=== PATIENT | female | born 1965 | race African-American/Black ===

== ENCOUNTER 2017-05-15 21:25 | Emergency (ER) | payer OTHER ==
--- NOTE | 2017-05-15 21:36 | PDOC ---
Rapid Medical Evaluation Time Seen by Provider: 05/15/17 21:31 Medical Evaluation: 05/15/17 21:32 I have performed a brief in-person evaluation of this patient. The patient presents with a chief complaint of: Coughing x1 month. Now c/o left sided "lung pain". Fingers/feet amputated due to "missed dx pneumonia, went into sepsis" in 2008 Pertinent physical exam findings:L/S ctab I have ordered the following: CXR The patient will proceed to the ED for further evaluation.
[2017-05-15 21:41] VITALS: BMI 31.4
--- NOTE | 2017-05-15 22:22 | PDOC ---
History of Present Illness - General Chief Complaint: Cold Symptoms Stated Complaint: FATIGUE Time Seen by Provider: 05/15/17 21:31 - History of Present Illness Initial Comments: 05/15/17 22:19 Patient is a 52 y.o. 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 Patient endorse a pleuritic chest pain but denies any dyspnea, palpitations. Patient did not receive the influenza vaccine. Patient further denies any subjective fevers/chills, nausea/vomiting, diarrhea/ constipation. NKDA Surgical: B/L LE and UE amputations, C/S PMD: None, will refer to IM resident clinic Past History - Past Medical History Allergies/Adverse Reactions: Allergies Allergy/AdvReac Type Severity Reaction Status Date / Time No Known Allergies Allergy Verified 05/15/17 23:03 Home Medications: Ambulatory Orders NK [No Known Home Medication] 05/15/17 COPD: No HTN: Yes - Suicide/Smoking/Psychosocial Hx Smoking History: Current every day smoker Have you smoked in the past 12 months: Yes Number of Cigarettes Smoked Daily: 5 Information on smoking cessation initiated: No Hx Alcohol Use: No Drug/Substance Use Hx: No Substance Use Type: None *Physical Exam - Vital Signs Last Vital Signs Temp Pulse Resp BP Pulse Ox 98.8 F 89 18 158/106 100 05/15/17 21:33 05/15/17 21:33 05/15/17 21:33 05/15/17 21:33 05/15/17 21:33 ED Treatment Course - LABORATORY CBC & Chemistry Diagram: 05/15/17 23:26 05/15/17 23:26 Medical Decision Making - Medical Decision Making 05/15/17 22:24 52 y.o. female presents with productive cough, pleuritic chest pain and flank pain. Patient initially hypertensive - will repeat BP. Initial clinical suspicion for pneumonia vs. bronchitis vs. influenza. Will also obtain UA/UC to r/o UTI/pyelonephritis. Pain control with Toradol. 05/15/17 22:41 Repeat BP SPB 150's. UA positive for 3 (+) blood. Will send for Spiral CT to r /o nephrolithiasis. CXR, labs pending. Patient resting comfortably, signed out to Dr. Villa (Resident). *DC/Admit/Observation/Transfer Diagnosis at time of Disposition: Pain - Referrals Referrals: Morteza Lira MD [Staff Physician] - - Patient Instructions - Post Discharge Activity
--- NOTE | 2017-05-15 22:28 | PDOC ---
Attending Attestation - Resident Resident Name: Edmund,Deirdre - ED Attending Attestation I have performed the following: I have examined & evaluated the patient, The case was reviewed & discussed with the resident, I agree w/resident's findings & plan, Exceptions are as noted - HPI HPI: 05/15/17 22:27 52y F hx of htn, hx of multiple amutations s/p episode of sepsis, presents with complaint of 1 month of cough productive of yellowish/whitish sputum, L sided back pain x several weeks with 4 days of L sided lower back pain. The upper back pain is worse wit hcoughs and movement, no associated hemoptysis, incerased leg swelling, HERNANDEZ, chest pain and is described as an aching and burning. pt nots that her L sided lower back pain is intermittent, worse with movements and resolves with rest. No associated abd pain, n/v, dysuria, hematuria, diarrhea. on exam the pt has abmupated digits on all fingers b/l LE amputations abd soft nontender +reproducible tenderness to the soft tissue under L scapula and in the L lumbar paraspinal regions suspect msk in nauter cxr to r/o pna UA shows +blood - will r/o kidney stone will reasesss - Physicial Exam PE: 05/16/17 03:38 see yamile - Medical Decision Making 05/16/17 03:38 pt feeling better w/ tramadol ct ap neg cxr neg for pna will dc with supportive care suspect her pain is msk in nature will have her fu with her PMD I discussed the physical exam findings, ancillary test results and final diagnoses with the patient. I answered all of the patient's questions. The patient was satisfied with the care received and felt comfortable with the discharge plan and treatment plan. The patient will call their primary care physician within 24 hours to arrange follow-up and will return to the Emergency Department with any new, persistent or worsening symptoms. Heart Score/ECG Review - ECG Impressions Comment:: 05/16/17 00:21 Twelve-lead EKG was performed and reviewed by me. There is normal sinus rhythm with a normal rate. Rate of 70 Left axis deviation T Wave inversion in lead 3, and a lateral leads
[2017-05-15] MEDS ORDERED: SODIUM CHLORIDE 0.9% 1000 ML INFUS.BAG IV ONE (22:38)
[2017-05-15] MEDS ORDERED: KETOROLAC TROMETHAMINE 15 MG/ML VIAL IVPUSH ONE (23:24)
[2017-05-15] MEDS ORDERED: KETOROLAC TROMETHAMINE 15 MG/ML VIAL ONE (23:28)
[2017-05-15 23:31] LABS: BASO % 1.3 % (0-2.0); EOS % 2.1 % (0-4.5); HEMATOCRIT 39.8 % (32.4-45.2); HEMOGLOBIN 13.1 GM/dL (10.7-15.3); LYMPH % 33.4 % (8-40); MCH 27.5 pg (25.7-33.7); MEAN CELL VOLUME 83.5 fl (80-96); MEAN PLT VOLUME 6.9 fl (7.5-11.1); MONO % 8.9 % (3.8-10.2); NEUT % 54.3 % (42.8-82.8); PLATELET COUNT 253 K/MM3 (134-434); RBC 4.76 M/mm3 (3.60-5.2); RDW 14.4 % (11.6-15.6)
[2017-05-15 23:33] LABS: URINE APPEARANCE CLEAR; URINE BILIRUBIN NEGATIVE (NEGATIVE); URINE BLOOD 2+ (NEGATIVE); URINE COLOR LTYELLOW; URINE GLUCOSE (UA) NEGATIVE (NEGATIVE); URINE KETONE NEGATIVE (NEGATIVE); URINE LEUK ESTERASE NEGATIVE (NEGATIVE); URINE NITRITE NEGATIVE (NEGATIVE); URINE PROTEIN NEGATIVE (NEGATIVE); URINE UROBILINOGEN NEGATIVE mg/dL (0.2-1.0)
[2017-05-15 23:50] LABS: EPI CELLS RARE /HPF (FEW); URINE MUCUS RARE
[2017-05-16 00:03] LABS: ALBUMIN 3.5 g/dl (3.4-5.0); ANION GAP 8 (8-16); BLOOD UREA NITROGEN 13 mg/dL (7-18); CALCIUM 8.2 mg/dL (8.5-10.1); CHLORIDE 107 mmol/L (98-107); CO2 27 mmol/L (21-32); CREATININE 0.7 mg/dL (0.55-1.02); GLUCOSE,RANDOM 132 mg/dL (74-106); POTASSIUM 3.7 mmol/L (3.5-5.1); SGOT/AST 15 U/L (15-37); SGPT/ALT 23 U/L (12-78); SODIUM 142 mmol/L (136-145)
[2017-05-16 00:04] LABS: ALK PHOS 87 U/L (45-117); BILIRUBIN,TOTAL 0.2 mg/dL (0.2-1.0); TOT PROT 6.8 g/dl (6.4-8.2)
--- NOTE | 2017-05-16 00:10 | PDOC ---
*Physical Exam - Vital Signs Last Vital Signs Temp Pulse Resp BP Pulse Ox 98.8 F 89 18 158/106 100 05/15/17 21:33 05/15/17 21:33 05/15/17 21:33 05/15/17 21:33 05/15/17 21:33 <AlbanJerilyn - Last Filed: 05/16/17 03:07> - Vital Signs Last Vital Signs Temp Pulse Resp BP Pulse Ox 98.8 F 89 18 158/106 100 05/15/17 21:33 05/15/17 21:33 05/15/17 21:33 05/15/17 21:33 05/15/17 21:33 - Physical Exam Comments: 05/16/17 00:09 The patient was signed out to me by Dr. Shaffer, divya team. The patient is a 52F presenting with L flank pain, CP, and cough. UA indicates blood. Pending spiral CT and chest XR. <Heber Villa - Last Filed: 05/16/17 03:40> ED Treatment Course - LABORATORY CBC & Chemistry Diagram: 05/15/17 23:26 05/15/17 23:26 - ADDITIONAL ORDERS Additional order review: Laboratory Results 05/15/17 05/15/17 05/15/17 23:26 23:26 23:26 Sodium 142 Potassium 3.7 Chloride 107 Carbon Dioxide 27 Anion Gap 8 BUN 13 Creatinine 0.7 Creat Clearance w eGFR > 60 Random Glucose 132 H Calcium 8.2 L Total Bilirubin 0.2 AST 15 ALT 23 Alkaline Phosphatase 87 Creatine Kinase 241 H Creatine Kinase Index 0.9 CK-MB (CK-2) 2.266 Troponin I < 0.02 Total Protein 6.8 Albumin 3.5 Urine Color Ltyellow Urine Appearance Clear Urine pH 6.0 Ur Specific [place] 1.017 Urine Protein Negative Urine Glucose (UA) Negative Urine Ketones Negative Urine Blood 2+ H Urine Nitrite Negative Urine Bilirubin Negative Urine Urobilinogen Negative Ur Leukocyte Esterase Negative Urine WBC (Auto) 2 Urine RBC (Auto) 5 Ur Epithelial Cells Rare Urine Mucus Rare 05/15/17 23:26 Influenza Types A,B Antigen (NASIR) - Final Nasopharyngeal Swab - Final 05/15/17 23:26 RBC 4.76 MCV 83.5 MCHC 33.0 RDW 14.4 MPV 6.9 L Neutrophils % 54.3 Lymphocytes % 33.4 Monocytes % 8.9 Eosinophils % 2.1 Basophils % 1.3 - Medications Given in the ED: ED Medications Discontinued Medications Generic Name Dose Route Start Last Admin Trade Name Josee PRN Reason Stop Dose Admin Ketorolac Tromethamine 15 mg 05/15/17 23:24 05/15/17 23:33 Toradol Injection - IVPUSH 05/15/17 23:25 15 mg ONCE ONE Administration Sodium Chloride 1,000 ml 05/15/17 22:38 05/15/17 23:33 Normal Saline - IV 05/15/17 22:39 1,000 ml ONCE ONE Administration <Jerilyn Phoenix - Last Filed: 05/16/17 03:07> - LABORATORY CBC & Chemistry Diagram: 05/15/17 23:26 05/15/17 23:26 - ADDITIONAL ORDERS Additional order review: Laboratory Results 05/15/17 05/15/17 05/15/17 23:26 23:26 23:26 Sodium 142 Potassium 3.7 Chloride 107 Carbon Dioxide 27 Anion Gap 8 BUN 13 Creatinine 0.7 Creat Clearance w eGFR > 60 Random Glucose 132 H Calcium 8.2 L Total Bilirubin 0.2 AST 15 ALT 23 Alkaline Phosphatase 87 Creatine Kinase 241 H Troponin I < 0.02 Total Protein 6.8 Albumin 3.5 Urine Color Ltyellow Urine Appearance Clear Urine pH 6.0 Ur Specific [place] 1.017 Urine Protein Negative Urine Glucose (UA) Negative Urine Ketones Negative Urine Blood 2+ H Urine Nitrite Negative Urine Bilirubin Negative Urine Urobilinogen Negative Ur Leukocyte Esterase Negative 05/15/17 23:26 Influenza Types A,B Antigen (NASIR) - Final Nasopharyngeal Swab - Final 05/15/17 23:26 RBC 4.76 MCV 83.5 MCHC 33.0 RDW 14.4 MPV 6.9 L Neutrophils % 54.3 Lymphocytes % 33.4 Monocytes % 8.9 Eosinophils % 2.1 Basophils % 1.3 - Medications Given in the ED: ED Medications Discontinued Medications Generic Name Dose Route Start Last Admin Trade Name Josee PRN Reason Stop Dose Admin Ketorolac Tromethamine 15 mg 05/15/17 23:24 05/15/17 23:33 Toradol Injection - IVPUSH 05/15/17 23:25 15 mg ONCE ONE Administration Sodium Chloride 1,000 ml 05/15/17 22:38 05/15/17 23:33 Normal Saline - IV 05/15/17 22:39 1,000 ml ONCE ONE Administration <Heber Villa Last Filed: 05/16/17 03:40> Medical Decision Making - Medical Decision Making 05/16/17 03:07 EXAM: CT abdomen pelvis without contrast HISTORY: Renal stone COMPARISON: None. FINDINGS: Abdomen Liver: There is a 1.6 cm right hepatic cyst Spleen: Normal Pancreas: Normal Gallbladder: Normal Stomach: Normal Small bowel: Normal Large bowel: Normal Appendix: Normal Adrenals:Normal Kidneys: Normal Vascular: Normal Lymphatic: Normal Peritoneal: No free peritoneal air or fluid Pelvis: Uterus: normal There is a 5.0 x 4.5 cm right adnexal cystic mass Rectum: Normal Bladder: Normal The inferior thorax: Normal General: Skeletal: Normal Abdominal wall: Normal Impression: Right adnexal cyst is likely ovarian in origin. Correlation with history and pelvic exam is recommended. Pelvic ultrasound would be helpful if there is concern for torsion Read by: Rick Decker MD <Jerilyn Phoenix - Last Filed: 05/16/17 03:07> - Medical Decision Making 05/16/17 00:09 The patient was signed out to me by Dr. Shaffer, divya team. The patient is a 52F presenting with L flank pain, CP, and cough. UA indicates blood. Pending spiral CT and chest XR. 05/16/17 03:18 CT read as above. Pending CXR. 05/16/17 03:39 CXR negative on preliminary read. Will treat h/a in ER and d/c home with toradol and PCP f/u. <Heber Villa - Last Filed: 05/16/17 03:40> *DC/Admit/Observation/Transfer - Attestations Scribe Attestion: 05/16/17 03:08 Documentation prepared by Jerilyn Phoenix, acting as medical planner for Bin Smith MD. <Jerilyn Phoenix - Last Filed: 05/16/17 03:07> - Discharge Dispostion Admit: No <Heber Villa Last Filed: 05/16/17 03:40> Diagnosis at time of Disposition: Pain - Discharge Dispostion Disposition: HOME Condition at time of disposition: Stable - Prescriptions Prescriptions: Tramadol HCl 50 mg PO TID PRN #10 tablet MDD 4 PRN Reason: Pain - Referrals Referrals: Morteza Lira MD [Staff Physician] - - Patient Instructions Printed Discharge Instructions: DI for Low Back Pain Additional Instructions: Please return to the ER if symptoms persist, worsen, or new symptoms arise. Please follow up with your primary care physician, Dr. Lira, in 2-3 days. Please return to the ER if you have any signs or symptoms of chest pain, shortness of breath, uncontrollable fever, chills, nausea, vomiting, numbness, tingling, or weakness in any part of your body, changes in vision, or slurred speech. Please take your medications as prescribed. - Post Discharge Activity
[2017-05-16] MEDS ORDERED: ACETAMINOPHEN 325 MG TABLET (FP) PO ONE (03:39)
[2017-05-16] MEDS ORDERED: ACETAMINOPHEN 325 MG TABLET (FP) ONE (03:43)
[2017-05-16 03:54] VITALS: BP 127/89; PULSE 88; TEMP 98.2
--- NOTE | 2017-05-16 13:03 | EKG ---
Test Reason : Blood Pressure : / mmHG Vent. Rate : 070 BPM Atrial Rate : 070 BPM P-R Int : 156 ms QRS Dur : 086 ms QT Int : 402 ms P-R-T Axes : 030 -41 -17 degrees QTc Int : 434 ms NORMAL SINUS RHYTHM LEFT AXIS DEVIATION POOR R WAVE PROGRESSION ABNORMAL ECG NO PREVIOUS ECGS AVAILABLE CLINICAL CORRELATION IS RECOMMENDED Confirmed by JULES WATKINS MD ([id number]) on 05/16/2017 1:03:12 PM Referred By: Confirmed By:JULES WATKINS MD
--- NOTE | 2017-05-18 07:44 | PDOC ---
Patient Follow-up (Call Back) - Post ED Follow - Up Condition at time of discharge: Stable Disposition at time of original discharge: HOME Reason for Call Back: Abnwl. Microbiology (Left message. +urine culture. Needs abx)
--- NOTE | 2017-05-19 07:23 | PDOC ---
Patient Follow-up (Call Back) - Post ED Follow - Up Condition at time of discharge: Stable Disposition at time of original discharge: HOME Reason for Call Back: Abnwl. Microbiology (Urine culture final report shows Escherichia coli. Called patient and will go to [facility] to start Keflex)
== END 2017-05-16 03:54 | disposition home or self-care (01) ==
LOC: JER 21:25
PROC: 3E0333Z Introduction of Anti-inflammatory into Peripheral Vein, Percutaneous Approach (ICD-10-PCS; principal; 2017-05-15)
DX: R07.89 Other chest pain (principal); F17.210 Nicotine dependence, cigarettes, uncomplicated; Z89.512 Acquired absence of left leg below knee; Z89.511 Acquired absence of right leg below knee; Z89.022 Acquired absence of left finger(s); Z89.021 Acquired absence of right finger(s); Z89.012 Acquired absence of left thumb; Z89.011 Acquired absence of right thumb
CPT/HCPCS: 36415; 71046-TC-FY; 74176; 80053; 81003; 81015; 82550; 82553; 84484; 85025; 87086; 87186; 87804; 93005; 93010; 96374; 99283-25

== ENCOUNTER 2017-05-27 07:39 | Day surgery (SDC) | payer OTHER ==
[2017-05-26 11:55] VITALS: BMI 31.4
--- NOTE | 2017-05-27 09:38 | PROC ---
Endoscopy Procedure Endoscopy procedure completed. Please see scanned procedure report.
[2017-05-27 09:42] VITALS: TEMP 98.2
[2017-05-27 10:27] VITALS: BP 128/76; PULSE 75
--- NOTE | 2017-05-28 12:25 | PATH ---
Surgical Pathology Report Patient Name: HUA FRANK [facility]. Rec. #: [id number] /Age/Gender: 1965 (Age: 52) / F Account: [id number] Location: [facility]-ENDOSCOPY Taken: 05/27/2017 Received: 05/27/2017 Reported: 05/28/2017 Physicians: Dustin Cardenas M.D. Specimen(s) Received A: COLON SIGMOID POLYP B: SIGMOID COLON POLYP Clinical History Preoperative diagnosis: Screening Postoperative diagnosis: Colon polyps Final Diagnosis A. SIGMOID COLON, POLYP, POLYPECTOMY: TUBULAR ADENOMA(S). B. SIGMOID COLON, POLYP, BIOPSY: HYPERPLASTIC POLYP(S). Electronically Signed Maria Luisa Anderson M.D. Gross Description A. Received in formalin, labeled "sigmoid colon polyps x2" are 2 cerda-brown, polypoid portions of soft tissue measuring 0.4 and 0.6 cm. in greatest dimension. The specimens are submitted in toto in one cassette. B. Received in formalin, labeled "biopsy sigmoid colon polyp" are 3 cerda, irregular portions of soft tissue ranging from 0.1-0.2 cm. in greatest dimension. The specimens are submitted in toto in one cassette. 05/27/201705/27/2017
== END 2017-05-27 11:08 | disposition home or self-care (01) ==
LOC: JASU-ENDO 07:39
PROVIDERS: ATTEND Internal Medicine Gastroenterology
PROC: 0DBM8ZX Excision of Descending Colon, Via Natural or Artificial Opening Endoscopic, Diagnostic (ICD-10-PCS; 2017-05-27)
PROC: 3E0H8GC Introduction of Other Therapeutic Substance into Lower GI, Via Natural or Artificial Opening Endoscopic (ICD-10-PCS; 2017-05-27)
PROC: 0DBN8ZX Excision of Sigmoid Colon, Via Natural or Artificial Opening Endoscopic, Diagnostic (ICD-10-PCS; principal; 2017-05-27 09:00)
DX: Z12.11 Encounter for screening for malignant neoplasm of colon (principal); K63.5 Polyp of colon; K64.8 Other hemorrhoids
CPT/HCPCS: 84703; 88305-TC

== ENCOUNTER 2018-01-08 09:50 | Emergency (ER) | payer OTHER ==
[2018-01-08 09:59] VITALS: BMI 30.4
[2018-01-08] MEDS ORDERED: ACETAMINOPHEN 1000 MG/100 ML VIAL (NON FORMULARY) IVPB ONE (10:21)
[2018-01-08] MEDS ORDERED: VALSARTAN 160 MG TABLET (UD) PO ONE (10:35)
[2018-01-08] MEDS ORDERED: HYDROCHLOROTHIAZIDE 25 MG TABLET (FP) PO ONE (10:35)
--- NOTE | 2018-01-08 10:35 | PDOC ---
History of Present Illness - General Chief Complaint: Blood Pressure Problem Stated Complaint: BLOOD PRESSURE PROBLEM Time Seen by Provider: 01/08/18 10:00 - History of Present Illness Initial Comments: 01/08/18 10:27 CHIEF COMPLAINT: Headache HISTORY OF PRESENT ILLNESS: This is a 52-year-old female with a history of hypertension (on medications, but cannot remember how many or which ones) and bilateral lower extremity BKA's and right finger amputation secondary to adverse effects of vasopressors while being treated for septic shock. She presents today with "severe" headache, holocephalic, and pressure/aching in character for the past 1 week. She also has dizziness/lightheadedness, even when seated. She denies visual changes. She denies chest pain/shortness of breath, pain, or any other symptoms. She reports she has not been taking her blood pressure medications for about the same amount of time, because she ran out. She was seen at her PCPs office yesterday and referred to the ED. Smoking: Half pack per day 30 years, quit 3 months ago. Alcohol: None Drugs: None Social: Lives with a partner. Unemployed. REVIEW OF SYSTEMS: GENERAL/CONSTITUTIONAL: No fever or chills. No weakness. No weight change. HEAD, EYES, EARS, NOSE AND THROAT: No change in vision. No ear pain or discharge. No sore throat. CARDIOVASCULAR: No chest pain or palpitations. RESPIRATORY: No cough, wheezing, or shortness of breath. GASTROINTESTINAL: Nausea. No vomiting, diarrhea or constipation. GENITOURINARY: No dysuria, frequency, or change in urination. MUSCULOSKELETAL: No joint or muscle swelling or pain. No neck or back pain. SKIN: No rash or easy bruising. NEUROLOGIC: See HPI. PSYCHIATRIC: No depression or anxiety. ENDOCRINE: No increased thirst. No abnormal weight change. HEMATOLOGIC/LYMPHATIC: No anemia, easy bleeding, or history of blood clots. ALLERGIC/IMMUNOLOGIC: No hives or skin allergy. No latex allergy. PHYSICAL EXAM: GENERAL: The patient is awake, alert, and fully oriented, appears to be in some distress secondary to pain. HEAD: Normal with no signs of trauma. ENT: Pupils equal, round and reactive to light, extraocular movements intact, sclera anicteric, conjunctiva clear. Neck supple. Fundoscopic exam normal. LUNGS: Clear to auscultation bilaterally. Normal excursion. No respiratory distress or use of accessory muscles. CV: RRR, S1/S2, no MRG. Cap refill < 2 sec. ABDOMEN: Soft, non-distended, non-tender. EXTREMITIES: Right elbow tenderness, unable to extend arm completely. No edema. NEUROLOGICAL: Normal speech, normal gait. CN II-XII grossly intact. PSYCH: Depressed affect. SKIN: Warm, dry, normal turgor, no rashes or lesions noted. Past History - Past Medical History Allergies/Adverse Reactions: Allergies Allergy/AdvReac Type Severity Reaction Status Date / Time No Known Allergies Allergy Verified 01/08/18 09:54 Home Medications: Ambulatory Orders Valsartan/Hydrochlorothiazide [Valsartan-Hctz 160-12.5 mg Tab] 1 each PO DAILY # 30 tablet 01/08/18 Anemia: No Asthma: No Cancer: No Cardiac Disorders: No CVA: No COPD: No CHF: No Dementia: No Diabetes: No GI Disorders: No Disorders: Yes (recent uti- on antibiotics) HTN: Yes Hypercholesterolemia: No Liver Disease: No Seizures: No Thyroid Disease: No - Surgical History Abdominal Surgery: No Appendectomy: No Cardiac Surgery: No Cholecystectomy: No Lung Surgery: No Neurologic Surgery: No Orthopedic Surgery: Yes (b/l lower extremities amputation) - Suicide/Smoking/Psychosocial Hx Smoking History: Current every day smoker Have you smoked in the past 12 months: Yes Number of Cigarettes Smoked Daily: 5 Information on smoking cessation initiated: No Hx Alcohol Use: Yes (social) Drug/Substance Use Hx: No Substance Use Type: None Hx Substance Use Treatment: No *Physical Exam - Vital Signs Last Vital Signs Temp Pulse Resp BP Pulse Ox 98.7 F 102 H 18 179/99 H 98 01/08/18 09:58 01/08/18 09:58 01/08/18 09:58 01/08/18 09:58 01/08/18 09:58 ED Treatment Course - LABORATORY CBC & Chemistry Diagram: 01/08/18 10:32 01/08/18 10:32 - RADIOLOGY Radiology Studies Ordered: Category Date Time Status HEAD CT WITHOUT CONTRAST [CT] Stat CT Scan 01/08/18 10:24 Ordered CHEST PA & LAT [RAD] Stat Radiology 01/08/18 10:22 Ordered ELBOW-RIGHT [RAD] Stat Radiology 01/08/18 10:21 Ordered Medical Decision Making - Medical Decision Making 01/08/18 10:31 A/P: 52 year old female with headache and elevated BP. Normal neurologic exam. 1. EKG 2. Labs including CBC, CMP, trop, UA to screen for evidence of organ dysfunction secondary to HTN 3. CXR, elbow XR 4. Acetaminophen 1000mg 5. Discussed with PCP's office - patient is supposed to be on Valsartan 160mg/ HCTZ 12.5 mg - will give these now (of note, pharmacy told her MD that she has not picked up meds x 2 months). They will see her in one week to re-evaluate. EKG: Normal sinus rhythm at 93 bpm with left axis deviation. There are T-wave inversions in inferior, susceptible, anterior, and lateral leads, most of which were also present on prior EKG of 05/15/17. 01/08/18 13:35 CTH: No acute process CXR: No acute process 01/08/18 13:55 Repeat BP 140/90. Symptoms improved. Will dc with Valsartan/HCTZ and clinic followup in one week. Return precautions reviewed. *DC/Admit/Observation/Transfer Diagnosis at time of Disposition: Headache Qualifiers: Headache type: unspecified Headache chronicity pattern: acute headache Intractability: not intractable Qualified Code(s): R51 - Headache - Discharge Dispostion Disposition: HOME Condition at time of disposition: Stable Decision to Admit order: No - Prescriptions Prescriptions: Valsartan/Hydrochlorothiazide [Valsartan-Hctz 160-12.5 mg Tab] 1 each PO DAILY # 30 tablet - Referrals Referrals: Barbara Clarke MD [Staff Physician] - 1 week - Patient Instructions Printed Discharge Instructions: DI for High Blood Pressure Additional Instructions: -Take Valsartan/HCTZ for blood pressure - prescription sent to [facility]. -Follow up with Dr. Clarke in one week. -Return here for severe headaches, chest pain, shortness of breath, decreased urination, or any other concerning symptoms. -Your elbow xray today showed only mild arthritis. You can take ibuprofen as needed for pain. You may need to see an orthopedic consultation and further imaging. - Post Discharge Activity
[2018-01-08] MEDS ORDERED: ACETAMINOPHEN INJECTION 100 ML IVPB ONE (10:41)
[2018-01-08 10:45] LABS: BASO % 1.2 % (0-2.0); EOS % 1.1 % (0-4.5); HEMATOCRIT 39.6 % (32.4-45.2); LYMPH % 34.4 % (8-40); MCH 27.3 pg (25.7-33.7); MCHC 32.9 g/dl (32.0-36.0); MEAN CELL VOLUME 82.8 fl (80-96); MEAN PLT VOLUME 6.8 fl (7.5-11.1); MONO % 8.5 % (3.8-10.2); NEUT % 54.8 % (42.8-82.8); PLATELET COUNT 290 K/MM3 (134-434); RBC 4.78 M/mm3 (3.60-5.2); RDW 15.3 % (11.6-15.6)
[2018-01-08] MEDS ORDERED: HYDROCHLOROTHIAZIDE 25 MG TABLET (FP) ONE (11:11)
[2018-01-08] MEDS ORDERED: VALSARTAN 80 MG TABLET (UD) ONE (11:11)
[2018-01-08 11:15] LABS: ALBUMIN 3.8 g/dl (3.4-5.0); ALK PHOS 88 U/L (45-117); ANION GAP 11 MMOL/L (8-16); BILIRUBIN,TOTAL 0.2 mg/dL (0.2-1); BLOOD UREA NITROGEN 11 mg/dL (7-18); CALCIUM 8.7 mg/dL (8.5-10.1); CHLORIDE 111 mmol/L (98-107); CO2 23 mmol/L (21-32); CREATININE 0.5 mg/dL (0.55-1.3); GLUCOSE,RANDOM 94 mg/dL (74-106); POTASSIUM 3.5 mmol/L (3.5-5.1); SGOT/AST 12 U/L (15-37); SGPT/ALT 20 U/L (13-61); SODIUM 145 mmol/L (136-145); TOT PROT 7.1 g/dl (6.4-8.2)
[2018-01-08 13:41] VITALS: BP 149/92; PULSE 82; TEMP 98.6
--- NOTE | 2018-01-08 15:43 | EKG ---
Test Reason : Blood Pressure : / mmHG Vent. Rate : 093 BPM Atrial Rate : 093 BPM P-R Int : 156 ms QRS Dur : 086 ms QT Int : 376 ms P-R-T Axes : 040 -47 -78 degrees QTc Int : 467 ms NORMAL SINUS RHYTHM LEFT AXIS DEVIATION T WAVE ABNORMALITY, CONSIDER INFERIOR ISCHEMIA T WAVE ABNORMALITY, CONSIDER ANTEROLATERAL ISCHEMIA PROLONGED QT ABNORMAL ECG WHEN COMPARED WITH ECG OF 15-MAY-2017 23:04, BORDERLINE CRITERIA FOR ANTERIOR INFARCT ARE NO LONGER PRESENT T WAVE INVERSION MORE EVIDENT IN ANTERIOR LEADS Confirmed by MARIVEL PRADHAN, KAREN ([id number]) on 01/08/2018 3:42:44 PM Referred By: Confirmed By:KAREN ORTA MD
== END 2018-01-08 14:08 | disposition home or self-care (01) ==
LOC: JER 09:50
PROC: 3E033NZ Introduction of Analgesics, Hypnotics, Sedatives into Peripheral Vein, Percutaneous Approach (ICD-10-PCS; principal; 2018-01-08)
DX: R51 Headache (principal); I10 Essential (primary) hypertension; Z89.512 Acquired absence of left leg below knee; Z89.511 Acquired absence of right leg below knee; F17.210 Nicotine dependence, cigarettes, uncomplicated
CPT/HCPCS: 36415; 70450-TC; 71046-TC-FY; 73070-TC-RT-FY; 80053; 82550; 84484; 85025; 93005; 93010; 96374; 99284-25; J0131

== ENCOUNTER 2018-06-14 10:08 | Emergency (ER) | payer OTHER ==
[2018-06-14 10:25] VITALS: BMI 32.2
--- NOTE | 2018-06-14 10:50 | PDOC ---
History of Present Illness - General Chief Complaint: Rectal Bleed Stated Complaint: BLOOD IN STOOL Time Seen by Provider: 06/14/18 10:28 Past History - Past Medical History Allergies/Adverse Reactions: Allergies Allergy/AdvReac Type Severity Reaction Status Date / Time No Known Allergies Allergy Verified 06/14/18 10:21 Home Medications: Ambulatory Orders Valsartan/Hydrochlorothiazide [Valsartan-Hctz 160-12.5 mg Tab] 1 each PO DAILY # 30 tablet 01/08/18 Ciprofloxacin HCl [Cipro] 500 mg PO BID #14 tablet 06/14/18 Metronidazole 500 mg PO Q8H #30 tablet 06/14/18 Anemia: No Asthma: No Cancer: No Cardiac Disorders: No CVA: No COPD: No CHF: No DVT: No Dementia: No Diabetes: No GI Disorders: No Disorders: Yes (recent uti- on antibiotics) HTN: Yes Hypercholesterolemia: No Liver Disease: No Seizures: No Thyroid Disease: No - Surgical History Abdominal Surgery: No Appendectomy: No Cardiac Surgery: No Cholecystectomy: No Lung Surgery: No Neurologic Surgery: No Orthopedic Surgery: Yes (b/l lower extremities amputation) - Immunization History Immunization Up to Date: Yes - Suicide/Smoking/Psychosocial Hx Smoking History: Never smoked Have you smoked in the past 12 months: Yes Number of Cigarettes Smoked Daily: 5 If you are a former smoker, when did you quit?: 09/28 Information on smoking cessation initiated: No Hx Alcohol Use: No Drug/Substance Use Hx: No Substance Use Type: None Hx Substance Use Treatment: No *Physical Exam - Vital Signs Last Vital Signs Temp Pulse Resp BP Pulse Ox 98.2 F 93 H 17 147/96 99 06/14/18 10:22 06/14/18 10:22 06/14/18 10:22 06/14/18 10:22 06/14/18 10:22 Moderate Sedation - Procedure Monitoring Vital Signs: Procedure Monitoring Vital Signs Temperature 98.2 F 06/14/18 10:22 Pulse Rate 93 H 06/14/18 10:22 Respiratory Rate 17 06/14/18 10:22 Blood Pressure 147/96 06/14/18 10:22 O2 Sat by Pulse Oximetry (%) 99 06/14/18 10:22 ED Treatment Course - LABORATORY CBC & Chemistry Diagram: 06/14/18 11:15 06/14/18 10:52 Medical Decision Making - Medical Decision Making 06/14/18 10:49 53 yo HTN, 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 Pt states yesterday began having diffuse abdominal cramping with loose non-bloody stools initially, but that this a.m. symptoms worsen and now "seeing more and more blood in my stool" per patient. No nausea , vomiting, fever or chills. Patient currently on day 6 of antibiotics after presenting with "cold like symptoms" to her PMD per pt. Does not know the name of meds. No recent travel, sick contacts or unusual food See exam Bloody diarrhea Currently on abx for ?URI (does not remember name of meds) Stable but lydia uncomfortable w diffuse ttp to abd -pain control -IVF -labs -stool studies r/o cdif -CT 06/14/18 14:30 Colitis to ascending/hepatic flexure/transverse colon on CT. Labs only remarkable for hypo K of 3.2 which was repleted. Pt states she feels much better after meds/IVF. Unable to give us a stool sample here. As per discussion with Dr. Smith, patient can be discharged with cipro, flagyl, to return for worsening of symptoms. Patient will also be given stool container here to take home to collect stool sample at home and take it to her PMD this week. Strict return precautions given 06/14/18 14:57 *DC/Admit/Observation/Transfer Diagnosis at time of Disposition: Colitis - Discharge Dispostion Disposition: HOME Condition at time of disposition: Improved - Prescriptions Prescriptions: Ciprofloxacin HCl [Cipro] 500 mg PO BID #14 tablet Metronidazole 500 mg PO Q8H #30 tablet - Referrals Referrals: Morteza Lira MD [Staff Physician] - - Patient Instructions Printed Discharge Instructions: DI for Colitis Additional Instructions: The cause of your diarrhea appears to be due to an inflammation in your colon called colitis. This condition is usually caused by infections such as viruses and bacteria. Given that you are currently on antibiotics for another reason, we are concerned about a condition called C. difficile which is an overgrowth of a certain bacteria when a patient is being treated with an antibiotic Please stop antibiotics that you are on currently and start taking flagyl and cipro which were sent to your pharmacy Please rest and drink plenty of fluids As you aware unable to give us a stool sample here, you were sent home with a container to collect stool at home and bring it into your PMD this week. If you indeed have cdificile, this condition is contagious. Please refrain from leaving the house while under treatment and limit contact with other individuals at home as discussed here If your symptoms persist and/or worsen as discussed in the ED, please return to the ER immediately - Post Discharge Activity
[2018-06-14] MEDS ORDERED: ACETAMINOPHEN 1000 MG/100 ML VIAL (NON FORMULARY) IVPB ONE (10:52)
[2018-06-14] MEDS ORDERED: SODIUM CHLORIDE 1,000 ML IV STA (10:52)
[2018-06-14] MEDS ORDERED: ACETAMINOPHEN INJECTION 100 ML IVPB ONE (11:01)
[2018-06-14 11:28] LABS: BASO % 0.8 % (0-2.0); EOS % 1.4 % (0-4.5); HEMATOCRIT 41.7 % (32.4-45.2); HEMOGLOBIN 14.2 GM/dL (10.7-15.3); LYMPH % 29.6 % (8-40); MCH 28.5 pg (25.7-33.7); MEAN CELL VOLUME 83.8 fl (80-96); MEAN PLT VOLUME 6.7 fl (7.5-11.1); MONO % 11.2 % (3.8-10.2); PLATELET COUNT 287 K/MM3 (134-434); RBC 4.97 M/mm3 (3.60-5.2); RDW 14.8 % (11.6-15.6); WHITE BLOOD COUNT 5.8 K/mm3 (4.0-10.0)
[2018-06-14 11:56] LABS: ALBUMIN 3.8 g/dl (3.4-5.0); ALK PHOS 93 U/L (45-117); ANION GAP 6 MMOL/L (8-16); BILIRUBIN,TOTAL 0.4 mg/dL (0.2-1); BLOOD UREA NITROGEN 15 mg/dL (7-18); CALCIUM 9.1 mg/dL (8.5-10.1); CHLORIDE 104 mmol/L (98-107); CO2 29 mmol/L (21-32); CREATININE 0.9 mg/dL (0.55-1.3); GLUCOSE,RANDOM 127 mg/dL (74-106); LIPASE 75 U/L (73-393); POTASSIUM 3.2 mmol/L (3.5-5.1); SGOT/AST 20 U/L (15-37); SGPT/ALT 24 U/L (13-61); SODIUM 138 mmol/L (136-145); TOT PROT 7.9 g/dl (6.4-8.2)
[2018-06-14] MEDS ORDERED: POTASSIUM CHLORIDE TABS 20 MEQ TABLET.ER (FP) PO ONE ×2 (12:45→13:07)
[2018-06-14] MEDS ORDERED: VANCOMYCIN 1,000 MG in DEXTROSE 5%-WATER - 250 ML IVPB ONE (14:08)
[2018-06-14] MEDS ORDERED: VANCOMYCIN 1 GRAM (PRE-DOCKED) 1,000 MG/250 ML BAG IVPB ONE (14:16)
[2018-06-14] MEDS ORDERED: CIPROFLOXACIN 500 MG TABLET (RESTRICTED TO ID) PO ONE (14:30)
[2018-06-14] MEDS ORDERED: metroNIDAZOLE 500 MG TABLET PO ONE (14:30)
[2018-06-14] MEDS ORDERED: metroNIDAZOLE 250 MG TABLET ONE (14:34)
[2018-06-14 14:56] LABS: URINE APPEARANCE CLEAR; URINE BILIRUBIN NEGATIVE (<2.0 mg/dL); URINE COLOR YELLOW; URINE GLUCOSE (UA) NEGATIVE (NEGATIVE); URINE KETONE NEGATIVE (NEGATIVE); URINE LEUK ESTERASE NEGATIVE (NEGATIVE); URINE NITRITE NEGATIVE (NEGATIVE); URINE PROTEIN NEGATIVE (NEGATIVE); URINE UROBILINOGEN NEGATIVE mg/dL (0.2-1.0)
[2018-06-14 15:15] VITALS: BP 130/87; PULSE 85; TEMP 97.7
== END 2018-06-14 15:32 | disposition home or self-care (01) ==
LOC: JER 10:08
DX: K52.89 Other specified noninfective gastroenteritis and colitis (principal); E87.6 Hypokalemia; I10 Essential (primary) hypertension; Z87.440 Personal history of urinary (tract) infections; Z79.2 Long term (current) use of antibiotics; Z89.512 Acquired absence of left leg below knee; Z89.511 Acquired absence of right leg below knee; Z89.022 Acquired absence of left finger(s); Z89.021 Acquired absence of right finger(s)
CPT/HCPCS: 36415; 74177-TC; 80053; 81003; 83605; 83690; 84703; 85025; 99283-25; J0131; J7030

== ENCOUNTER 2020-09-15 21:58 | Emergency (ER) | payer OTHER ==
[2020-09-15 22:04] VITALS: BP 109/70; PULSE 104; TEMP 98.3; BMI 27.9
[2020-09-15] MEDS ORDERED: IBUPROFEN 600 MG TABLET (FP) PO ONE (23:52)
[2020-09-15] MEDS ORDERED: LIDOCAINE 5% TOPICAL PATCH TP ONE (23:53)
[2020-09-15] MEDS ORDERED: METHOCARBAMOL 500 MG TABLET PO ONE (23:53)
[2020-09-16] MEDS ORDERED: LIDOCAINE 5% TOPICAL PATCH ONE (00:01)
[2020-09-16] MEDS ORDERED: IBUPROFEN 600 MG TABLET (FP) PO ONE (00:01)
[2020-09-16] MEDS ORDERED: METHOCARBAMOL 500 MG TABLET ONE (00:01)
[2020-09-16] MEDS ORDERED: KETOROLAC TROMETHAMINE 15 MG/ML VIAL IM ONE (01:46)
[2020-09-16] MEDS ORDERED: KETOROLAC TROMETHAMINE 15 MG/ML VIAL ONE (01:50)
== END 2020-09-16 02:46 | disposition home or self-care (01) ==
LOC: JER 21:58
PROC: 3E0233Z Introduction of Anti-inflammatory into Muscle, Percutaneous Approach (ICD-10-PCS; principal; 2020-09-15)
DX: R07.9 Chest pain, unspecified (principal)
CPT/HCPCS: 71101-TC-RT-FY; 93005; 93010; 99284-25